=== PATIENT | female | born 1965 | race Caucasian/White ===

== ENCOUNTER 2016-10-21 18:03 | Emergency (ER) | payer OTHER ==
[~2016-10-21] VITALS: Ht 172.7 cm; Wt 72.6 kg
[~2016-10-21 18:03] MED LIST: AMBIEN 5 MG TABL5 M1 PO; CITRATE OF MAG296 ML PO; FENTANYL PA50 MCG/HR TRANSDERM; IBUPROFEN 800800 M1 PO; KEFLEX500 MG PO; KEPPRA XR750 MG PO; LISINOPRIL10 MG PO; NORCO 5-325 TA1 EACH PO; OXYCONTIN10 M1; PERCOCET 10-321 EACH; ULTRAM 50MG TAB50 MG PO; VALIUM5 MG PO; ZOFRAN ODT4 MG PO
[2016-10-21] MEDS ORDERED: PHENERGAN 25 MG25 M1 PO (18:42)
[2016-10-21] MEDS ORDERED: HALCION0.25 MG PO (18:43)
== END 2016-10-21 18:52 | disposition home or self-care (01) ==
LOC: ER 18:03
DX: S40.022A Contusion of left upper arm, initial encounter (principal); F10.99 Alcohol use, unspecified with unspecified alcohol-induced disorder; Z96.651 Presence of right artificial knee joint; Z90.710 Acquired absence of both cervix and uterus; Z88.8 Allergy status to other drugs, medicaments and biological substances; W22.01XA Walked into wall, initial encounter; Y93.89 Activity, other specified; Y92.89 Other specified places as the place of occurrence of the external cause; Y99.8 Other external cause status

== ENCOUNTER 2021-04-22 09:18 | Emergency (ER) | payer MEDICAID ==
[~2021-04-22] VITALS: Ht 172.7 cm; Wt 72.6 kg
[~2021-04-22 09:18] MED LIST changes: +HALCION0.25 MG PO; +PHENERGAN 25 MG25 M1 PO
[2021-04-22 10:38] VITALS: BP 100/68
[2021-04-22] MEDS ORDERED: NAPROSYN500 MG PO (10:56)
== END 2021-04-22 11:30 | disposition home or self-care (01) ==
LOC: ER
DX: M54.89 Other dorsalgia (principal); Z98.890 Other specified postprocedural states; Z90.710 Acquired absence of both cervix and uterus; Z79.899 Other long term (current) drug therapy; Z88.8 Allergy status to other drugs, medicaments and biological substances